=== PATIENT | female | born 1970 | race Caucasian/White ===

== ENCOUNTER 2019-02-21 19:06 | Inpatient (IN) ==
--- OUTSIDE RECORDS SUMMARY | 2019-02-21 19:09 | External Medical Summary | Continuity of Care Document ---
:1970 Author Name Lillie Daniels, Provider Address Unavailable Unavailable , Care Team Providers Name Role Phone Kennedy Hernández M.D. Unavailable [email or web address] Unavailable Unavailable Problems Active medical history not documented Allergies and Adverse Reactions Allergy history not documented Medications Medications not documented Procedures Procedures not documented Immunizations Immunizations not documented Plan of Treatment Planned Encounters Appointment; Kennedy Hernández M.D. Start: 10-Apr-2019 13:20 R equest Planned Observations Planned Goals not documented Results No Known Results Results not documented Encounters Appointment; Kennedy Hernández M.D. 10-Apr-2019 13:20 Encounter Diagnosis: Problem not documented
[2019-02-21] MEDS ORDERED: SODIUM CHLORIDE 0.9% 1000ML 1,000 ML IV ONE ×2 (19:22→20:59)
[2019-02-21] MEDS ORDERED: ONDANSETRON INJ 2 MG/ML 2 ML VIAL IV STA (19:22)
[2019-02-21 19:39] LABS: Basophils # (auto) 0.02 K/uL (0-0.2); Basophils % (auto) 0.1 %; Eosinophils # (auto) 0.02 K/uL (0-0.5); Eosinophils % (auto) 0.1 %; Hematocrit (blood only) 41.5 % (37-47); Hemoglobin 14.2 g/dL (12.0-16.0); Immature Granulocytes # (auto) 0.06 K/uL (0.00-0.02); Immature Granulocytes % (auto) 0.3 %; Lymphocytes # (auto) 1.71 K/uL (1.2-3.4); Lymphocytes % (auto) 8.6 %; Mean Corpuscular Hgb Conc 34.2 g/dL (32-36); Mean Corpuscular Volume 85.4 fL (80-100); Mean Platelet Volume 10.1 fL (7.4-10.4); Monocytes # (auto) 0.38 K/uL (0.11-0.59); Monocytes % (auto) 1.9 %; Neutrophils # (auto) 17.79 K/uL (1.4-6.5); Platelet Count 345 K/uL (130-400); RDW Coefficient of Variation 13.3 % (11.5-14.5); RDW Standard Deviation 41.1 fL (36.4-46.3); Red Blood Count 4.86 M/uL (4.2-5.4); White Blood Count 19.98 K/uL (4.8-10.8)
[2019-02-21] MEDS: fentaNYL citrate 100 MCG/2 ML VIAL IV PRN ×2 (19:42→22:11)
[2019-02-21 19:50] LABS: iSTAT Creatinine 0.9 mg/dl (0.6-1.3); iSTAT Ionized Calcium 1.17 mmol/l (1.12-1.32); iSTAT Potassium 4.5 mEq/L (3.3-5.0)
[2019-02-21 19:56] LABS: Alanine Aminotransferase 20 U/L (12-78); Albumin Level 3.5 gm/dl (3.4-5.0); Aspartate Aminotransferase 10 U/L (15-37); BUN Creatinine Ratio 13.1 (10-20); Blood Urea Nitrogen 14 mg/dl (7-18); Calcium 9.3 mg/dl (8.5-10.1); Carbon Dioxide 19 mmol/L (21-32); Chloride 107 mmol/L (98-107); Est GFR (African American) 74.4; Est GFR (Non-African American) 64.2; Glucose 169 mg/dl (70-99); Potassium 4.3 mmol/L (3.5-5.1); Sodium 137 mmol/L (136-145)
[2019-02-21 20:00] LABS: Albumin Globulin Ratio 0.7 (0.9-2); Alkaline Phosphatase 51 U/L (45-117); Bilirubin,Total 0.3 mg/dl (0.2-1); C Reactive Protein 1.37 mg/dl (0-0.29); Total Protein 8.5 gm/dl (6.4-8.2); Troponin I < 0.015 ng/ml (0-0.045)
[2019-02-21 20:06] LABS: Partial Thromboplastin Ratio 0.8; Partial Thromboplastin Time 22.4 Seconds (21.0-31.0); Prothrombin Time 10.4 Seconds (9.0-12.0)
[2019-02-21 20:16] LABS: Pregnancy Test, Serum Negative (Negative)
[2019-02-21] MEDS ORDERED: IOVERSOL 100ml IV PRN (20:22)
--- NOTE | 2019-02-21 20:32 | CT Scan Report ---
CT abd pelvis IV con only CLINICAL HISTORY: 48 years-old Female presenting with generalized abdominal pain. TECHNIQUE: Multidetector CT of the abdomen and pelvis was performed after the administration of intra venous contrast. IV contrast: 93 mL of Optiray 320. One or more dose lowering techniques were used co nsistent with the principles of ALARA (as low as reasonably achievable), including automatic exposure control, mA or kV adjustment to individual patient size, and/or use of iterative reconstruction. COMPARISON: None. CT DOSE (mGy.cm): The estimated cumulative dose is 372.47 mGy.cm. FINDINGS: Anesthesia Associate topogram: Unremarkable. Lung bases: Normal heart size. No pericardial or pleural effusion. Minimal dependent changes likely a telectasis. Liver: Normal morphology. Density suggestive of hepatic steatosis. No focal lesion. Patent hepatic va sculature. Biliary: No intrahepatic or extrahepatic biliary ductal dilatation. Normal gallbladder. Pancreas: Normal. Spleen: Normal. Adrenal glands: Normal. Kidneys and ureters: Normal. No hydronephrosis. Bladder: Incompletely evaluated secondary to underdistention. Pelvic organs: Uterus and ovaries normal. Bowel: The colon is decompressed. Mild diffuse colonic wall thickening. Few scattered colonic diverti cula. The appendix is normal. More severe small bowel wall thickening primarily affecting the distal ileum. This spares the terminal ileum. There is a striated enhancement pattern of the mucosa and sero sa significant perienteric fat infiltration. Trace hiatal hernia. Peritoneal cavity: Trace interloop fluid within the ileal loop so small bowel. Trace perihepatic asci delisa and small volume ascites in the pelvis. No free intraperitoneal gas. Lymph nodes: No enlarged lymph nodes in the abdomen or pelvis. Vasculature: Aorta and IVC patent and normal in caliber. Abdominal wall: Normal. Musculoskeletal: Normal. IMPRESSION: 1. Severe enteritis of the ileum with milder colitis. No involvement of the terminal ileum. This is most likely on an infectious or inflammatory basis. No evidence of perforation. No appendicitis. 2. Reactive ascites. 3. Suspected hepatic steatosis. Electronically signed by: Rafi Larsen M.D. 02/21/2019 8:30 PM
--- NOTE | 2019-02-21 20:47 | XRay Report ---
XR chest 1V portable CLINICAL HISTORY: 48 years-old Female presenting with abdominal pain for one day. TECHNIQUE: Portable upright AP view of the chest was obtained. COMPARISON: None. FINDINGS: Cardiomediastinal silhouette normal. Lungs and pleural spaces clear. Osseous structures normal. Upper abdomen normal. IMPRESSION: 1. No acute cardiopulmonary disease. Electronically signed by: Rafi Larsen M.D. 02/21/2019 8:46 PM
--- NOTE | 2019-02-21 23:09 | History & Physical Report ---
Date of Service February 21, 2019 Assessment & Plan (1) Enterocolitis: Enterocolitis/reactive ascites/fatty liver- Unclear etiology at this time. Studies are pending for stool culture and C. difficile, follow and treat appropriately. N.p.o., to advance to full liquids as tolerated. IV fluids. Zofran 4 mg IV every 6 hours PRN. Present on Admission?: Yes (2) Ascites: See above Present on Admission?: Yes (3) Hypotension: Lowest blood pressure recording was 78/52, which responded to standard septic fluid rehydration protocol. We will admit to medical telemetry to follow blood pressure closely. Present on Admission?: Yes (4) Hypertension: Will hold lisinopril due to hypotension Present on Admission?: Yes (5) Allergic rhinitis: Continue Singulair. Present on Admission?: Yes (6) Hyperglycemia: Glucose was 169 upon arrival. Check hemoglobin A1c. Present on Admission?: Yes History of Present Illness Chief Complaint: The patient presents to the emergency department with complaint of intermittent sharp abdominal pain, diarrhea, nausea and vomiting Primary Care Provider: Kathie Bellamy The patient is a 48-year-old female with a past medical history including hypertension and allergy, who presents emergency department with persistent abdominal discomfort, nausea, vomiting and diarrhea. She denies any recent travel or sick exposures. She also denies any questionable food intake. She has had no previous occurrence of these types of symptoms. She denies any blood in stool. Allergies Allergy/AdvReac Type Severity Reaction Status Date / Time No Known Allergies Allergy Verified 02/21/19 22:02 Home Medications Home Medications Medication Instructions Recorded Confirmed Type drospirenone-ethinyl estradiol 1 tab PO DAILY 02/21/19 02/21/19 History [LISBETH (28)] lisinopril 10 mg PO QAM 02/21/19 02/21/19 History montelukast [Singulair] 10 mg PO PM 02/21/19 02/21/19 History multivitamin 1 tab PO QAM 02/21/19 02/21/19 History omega 5-nes-eyz-fish oil [Fish Oil] 1 cap PO QAM 02/21/19 02/21/19 History Past Med/Surg History Medical History HTN (hypertension) (Chronic) Social History Preferred Language: Czech Pit 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: No Beliefs That Will Affect Care: None Current Living Situation: Spouse Other Information That Helps Us Care for You: No Feels Safe at Home: Yes Safety Concerns: Feels Safe At This Time Smoking Status: Never smoker Hx Alcohol Use: Yes Hx Substance Use: No Review of Systems Review of Systems: The patient denies chest pain, palpitations, shortness of breath, dyspnea on exertion, cough, lower extremity swelling, sore throat, fevers, chills, Blood in urine or stool, dysuria, urinary frequency or urgency, headache, memory loss, loss of consciousness, rash, abnormal bruising or bleeding, imbalance, focal or generalized weakness, numbness or tingling in arms or legs, generalized arthralgias or myalgias, back or neck pain, or night sweats. The review of systems is otherwise negative other than for that already noted above, and at least 10 systems have been reviewed. Physical Exam Physical Exam: The patient is awake, alert and oriented 3, normocephalic and atraumatic, lying in bed and in no acute distress. HEENT--PERRL, EOMI, mucous membranes and oropharynx dry. Neck--supple. No JVD. No bruits. Thyroid normal, trachea midline, no adenopathy. Heart--normal S1 and S2. No murmurs, rubs or gallops. Lungs--clear bilaterally, no respiratory distress, no accessory muscle use. Abdomen--normal bowel sounds and soft. Mild generalized tenderness, nondistended. Mildly tympanitic. Extremities--no cyanosis or clubbing. No edema. There are good distal pulses b/l. Dermatologic--normal skin turgor, normal color, no abnormal lymph nodes, no rash. Neurologic--cranial nerves II through XII grossly intact. Rheumatologic--normal range of motion. Psychiatric--normal affect. Results & Data Vital Signs (Past 12 Hours) Vital Signs Temp Pulse Pulse Resp BP BP Pulse Ox 02/21/19 23:00 74 18 112/66 98 02/21/19 22:00 76 18 124/78 98 02/21/19 21:00 77 17 112/71 98 02/21/19 19:51 72 18 113/59 L 98 02/21/19 19:15 97.7 F 78 22 78/52 L 96 Laboratory Results Laboratory Results WBC 19.98 K/uL (4.8-10.8) H 02/21/19 19: RBC 4.86 M/uL (4.2-5.4) 02/21/19 19:28 Hgb 14.2 g/dL (12.0-16.0) 02/21/19 19: POC Hgb 15.0 g/dl (12.0-16.0) 02/21/19 19:36 Hct 41.5 % (37-47) 02/21/19 19: POC Hct 44 % (37-47) 02/21/19 19:36 MCV 85.4 fL (80-100) 02/21/19: MCH 29.2 pg (25-34) 02/21/19: MCHC 34.2 g/dL (32-36) 02/21/19: RDW Std Deviation 41.1 fL (36.4-46.3) 02/21/19: RDW Coeff of Desire 13.3 % (11.5-14.5) 02/21/19: Plt Count 345 K/uL (130-400) 02/21/19: MPV 10.1 fL (7.4-10.4) 02/21/19 19:28 Immature Gran % (Auto) 0.3 % 02/21/19 19: Neut % (Auto) 89.0 % 02/21/19: Lymph % (Auto) 8.6 % 02/21/19: [place] % (Auto) 1.9 % 02/21/19 19: Eos % (Auto) 0.1 % 02/21/19: Baso % (Auto) 0.1 % 02/21/19: Immature Gran # (Auto) 0.06 K/uL (0.00-0.02) H 02/21/19 19:28 Neut # (Auto) 17.79 K/uL (1.4-6.5) H 02/21/19 19:28 Lymph # (Auto) 1.71 K/uL (1.2-3.4) 02/21/19 19:28 [place] # (Auto) 0.38 K/uL (0.11-0.59) 02/21/19 19:28 Eos # (Auto) 0.02 K/uL (0-0.5) 02/21/19 19:28 Baso # (Auto) 0.02 K/uL (0-0.2) 02/21/19 19:28 ESR 37 mm/hr (0-21) H 02/21/19 19:28 PT 10.4 Seconds (9.0-12.0) 02/21/19 19:28 INR 1.0 (0.9-1.1) 02/21/19 19: APTT 22.4 Seconds (21.0-31.0) 02/21/19: PTT Ratio 0.8 02/21/19 19:28 POC Sodium 138 mEq/L (135-144) 02/21/19 19:36 Sodium 137 mmol/L (136-145) 02/21/19 19:28 POC Potassium 4.5 mEq/L (3.3-5.0) 02/21/19 19:36 Potassium 4.3 mmol/L (3.5-5.1) 02/21/19 19:28 POC Chloride 108 mEq/L (101-112) 02/21/19 19:36 Chloride 107 mmol/L (98-107) 02/21/19 19:28 Carbon Dioxide 19 mmol/L (21-32) L 02/21/19:28 POC Total CO2 17 mEq/l (24-31) L 02/21/19 19:36 Anion Gap 11.0 (3-11) 02/21/19 19:28 POC Anion Gap 19.0 mmol/L (16-25) 02/21/19 19:36 POC BUN 14 mg/dl (7-18) 02/21/19 19:36 BUN 14 mg/dl (7-18) 02/21/19 19:28 Creatinine 1.03 mg/dl (0.6-1.2) 02/21/19 19:28 POC Creatinine 0.9 mg/dl (0.6-1.3) 02/21/19 19:36 Est Cr Clr Drug Dosing Not Reportable 02/21/19 19:28 Est GFR ( Amer) 74.4 02/21/19 19:28 Est GFR (Non-Af Amer) 64.2 02/21/19 19:28 BUN/Creatinine Ratio 13.1 (10-20) 02/21/19 19:28 Glucose 169 mg/dl (70-99) H 02/21/19 19:28 POC Glucose (other) 185 mg/dl (70-99) H 02/21/19 19:36 Calcium 9.3 mg/dl (8.5-10.1) 02/21/19: POC Ioniz Calcium Babak 1.17 mmol/l (1.12-1.32) 02/21/19 19:36 Total Bilirubin 0.3 mg/dl (0.2-1) 02/21/19:28 AST 10 U/L (15-37) L 02/21/19: ALT 20 U/L (12-78) 02/21/19: Alkaline Phosphatase 51 U/L (45-117) 02/21/19: Troponin I < 0.015 ng/ml (0-0.045) 02/21/19: C-Reactive Protein 1.37 mg/dl (0-0.29) H 02/21/19 19:28 Total Protein 8.5 gm/dl (6.4-8.2) H 02/21/19:28 Albumin 3.5 gm/dl (3.4-5.0) 02/21/19: Globulin 5.0 gm/dl (2.5-4.0) H 02/21/19:28 Albumin/Globulin Ratio 0.7 (0.9-2) L 02/21/19: Lipase 132 U/L (73-393) 02/21/19 19:28 HCG, Qual Negative (Negative) 02/21/19 19: Urine Color Yellow 02/22/19 00:01 Urine Appearance Clear (Clear) 02/22/19 00: Urine pH 6.5 (4.5-7.5) 02/22/19 00:01 Ur Specific [place] > 1.045 (1.000-1.030) H 02/22/19 00:01 Urine Protein Negative (Negative) 02/22/19 00:01 Urine Glucose (UA) Negative (Negative) 02/22/19 00:01 Urine Ketones 1+ (Negative) H 02/22/19 00:01 Urine Blood Negative (Negative) 02/22/19 00:01 Urine Nitrite Negative (Negative) 02/22/19 00:01 Urine Bilirubin Negative (Negative) 02/22/19 00:01 Urine Urobilinogen Negative (Negative) 02/22/19 00:01 Ur Leukocyte Esterase Negative (Negative) 02/22/19 00:01 Diagnostic Findings [place], [place] [phone] CT Scan Report Patient: ROB MEADE AAdmit Date: 02/21/19 MR#: [id number]: [address] Acct ID:[id number]: Date: 1970[facility] Zip: [place] [address] Age: 48Location: ED Sex: F Room/Bed: Att Phy: Diagnosis: SEVERE ABDOMINAL CRAMPS, VOMITING, DIARRHEA Ailyn Phy: Kathie Bellamy CRNPService Date: 02/21/19 Fam Phy: Interpreting Phy: Rafi Larsen MD Admit Phy: Ordering Phy: Justin Jones DO cc: ~ CT abd pelvis IV con only CLINICAL HISTORY: 48 years-old Female presenting with generalized abdominal pain. TECHNIQUE: Multidetector CT of the abdomen and pelvis was performed after the administration of intravenous contrast. IV contrast: 93 mL of Optiray 320. One or more dose lowering techniques were used consistent with the principles of ALARA (as low as reasonably achievable), including automatic exposure control, mA or kV adjustment to individual patient size, and/or use of iterative reconstruction. COMPARISON: None. CT DOSE (mGy.cm): The estimated cumulative dose is 372.47 mGy.cm. FINDINGS: River Driver topogram: Unremarkable. Lung bases: Normal heart size. No pericardial or pleural effusion. Minimal dependent changes likely atelectasis. Liver: Normal morphology. Density suggestive of hepatic steatosis. No focal lesion. Patent hepatic vasculature. Biliary: No intrahepatic or extrahepatic biliary ductal dilatation. Normal gallbladder. Pancreas: Normal. Spleen: Normal. Adrenal glands: Normal. Kidneys and ureters: Normal. No hydronephrosis. Bladder: Incompletely evaluated secondary to underdistention. Pelvic organs: Uterus and ovaries normal. Bowel: The colon is decompressed. Mild diffuse colonic wall thickening. Few scattered colonic diverticula. The appendix is normal. More severe small bowel wall thickening primarily affecting the distal ileum. This spares the terminal ileum. There is a striated enhancement pattern of the mucosa and serosa significant perienteric fat infiltration. Trace hiatal hernia. Peritoneal cavity: Trace interloop fluid within the ileal loop so small bowel. Trace perihepatic ascites and small volume ascites in the pelvis. No free intraperitoneal gas. Lymph nodes: No enlarged lymph nodes in the abdomen or pelvis. Vasculature: Aorta and IVC patent and normal in caliber. Abdominal wall: Normal. Musculoskeletal: Normal. IMPRESSION: 1. Severe enteritis of the ileum with milder colitis. No involvement of the terminal ileum. This is most likely on an infectious or inflammatory basis. No evidence of perforation. No appendicitis. 2. Reactive ascites. 3. Suspected hepatic steatosis. Electronically signed by: Rafi Larsen M.D. 02/21/2019 8:30 PM Dictated: 02/21/192024 Transcribed: 02/21/192024 [place], [place] [phone] XRay Report Patient: ROB MEADE AAdmit Date: 02/21/19 MR#: [id number]: [address] Acct ID:[id number]: Date: 1970[facility] Zip: [place] [address] Age: 48Location: ED Sex: F Room/Bed: Att Phy: Diagnosis: SEVERE ABDOMINAL CRAMPS, VOMITING, DIARRHEA Ailyn Phy: Kathie Bellamy CRNPService Date: 02/21/19 Fam Phy: Interpreting Phy: Rafi Larsen MD Admit Phy: Ordering Phy: Justin Jones DO cc: ~ XR chest 1V portable CLINICAL HISTORY: 48 years-old Female presenting with abdominal pain for one day. TECHNIQUE: Portable upright AP view of the chest was obtained. COMPARISON: None. FINDINGS: Cardiomediastinal silhouette normal. Lungs and pleural spaces clear. Osseous structures normal. Upper abdomen normal. IMPRESSION: 1. No acute cardiopulmonary disease. Electronically signed by: Rafi Larsen M.D. 02/21/2019 8:46 PM Dictated: 02/21/192044 Transcribed: 02/21/192044 Code Status & VTE Plan Code Status Full code VTE Prophylaxis Plan VTE Prophylaxis will be ordered: Yes PG Care Time/CCT Total # of Minutes Spent Total Time Spent with Patient: Total time spent is greater than 50% in coordination of care (as documented) at patient's floor/unit and/or counseling patient: (1) Hypertension Hypertension type: unspecified Qualified Code(s): I10 - Essential (primary) hypertension
[2019-02-21] MEDS ORDERED: ACETAMINOPHEN 325 MG TAB PO PRN (23:21)
[2019-02-21] MEDS ORDERED: MAGNESIUM HYDROXIDE SUSP 30 ML UDC PO PRN (23:21)
[2019-02-21] MEDS ORDERED: ALUMINUM/MAGNESIUM SUSP 30 ML UDC PO PRN (23:21)
[2019-02-21] MEDS: NSS + 20MEQ KCL 20 MEQ/1,000 ML BAG IV SCH (23:52)
[2019-02-22 00:25] LABS: Appearance Urine Clear (Clear); Bilirubin Urine Negative (Negative); Blood Urine Negative (Negative); Color Urine Yellow; Glucose Urine UA Negative (Negative); Ketones Urine 1+ (Negative); Leukocyte Esterase Urine Negative (Negative); Nitrite Urine Negative (Negative); Protein Urine Negative (Negative); Specific Gravity Urine > 1.045 (1.000-1.030); Urobilinogen Urine Negative (Negative); pH Urine 6.5 (4.5-7.5)
--- NOTE | 2019-02-22 00:33 | Emergency Department Note ---
Entered by Janette Daugherty acting as a scribe for Justin Jones DO History of Present Illness General Chief complaint: Abdominal Pain Stated complaint: SEVERE ABDOMINAL CRAMPS, VOMITING, DIARRHEA Source: patient and family () History of Present Illness Provider complaint: abdominal pain Onset (ago): day(s) (several days ago) Location: abdomen Pain Consistency: + intermittent Maximum Pain Intensity: 8 Quality: + sharp Associated symptoms: + nausea/vomiting and + other (+diarrhea, -blood in stools or vomit) The patient is a 48 year old female who presents to the Emergency Room with complaints of intermittent sharp abdominal pain. The patients states the patient has been having constant abdominal pain, diarrhea, nausea, and vomiting. He states that the patient has been having vomiting episodes every 25 minutes. The patient states that she takes medication for hypertension. She d enies any blood in her stools. She denies any past liver issues. Home Medications Home Medications Medication Instructions Recorded Confirmed Type drospirenone-ethinyl estradiol 1 tab PO DAILY 02/21/19 02/21/19 History [LISBETH (28)] lisinopril 10 mg PO QAM 02/21/19 02/21/19 History montelukast [Singulair] 10 mg PO PM 02/21/19 02/21/19 History multivitamin 1 tab PO QAM 02/21/19 02/21/19 History omega 1-okq-rcd-fish oil [Fish Oil] 1 cap PO QAM 02/21/19 02/21/19 History Allergies Allergy/AdvReac Type Severity Reaction Status Date / Time No Known Allergies Allergy Verified 02/21/19 22:02 Past Med/Surg History Medical History HTN (hypertension) (Chronic) Social History Preferred Language: Portuguese Completion Manager Required: No Beliefs That Will Affect Care: None Current Living Situation: Spouse Other Information That Helps Us Care for You: No Feels Safe at Home: Yes Safety Concerns: Feels Safe At This Time Smoking Status: Never smoker Hx Alcohol Use: Yes Hx Substance Use: No Review of Systems See HPI for pertinent positives & negatives. and A total of 10 systems reviewed and were otherwise negative Physical Exam Vital Signs Vital Signs - 24 hr 02/21/19 19:15 02/21/19 19:51 02/21/19 21:00 Temperature 36.5 C Temperature Source Oral Sepsis Recent Fever Within 48 Hours No Sepsis Action Taken by Nursing No Action Required Pulse Rate 78 Pulse Rate [Right Finger] 72 77 Respiratory Rate 22 18 17 Blood Pressure 78/52 L Blood Pressure [Right Arm] 113/59 L 112/71 Blood Pressure Mean 60 Blood Pressure Mean [Right Arm] 77 84 Pulse Oximetry 96 98 98 Oxygen Delivery Method Room Air 02/21/19 22:00 Temperature Temperature Source Sepsis Recent Fever Within 48 Hours Sepsis Action Taken by Nursing Pulse Rate Pulse Rate [Right Finger] 76 Respiratory Rate 18 Blood Pressure Blood Pressure [Right Arm] 124/78 Blood Pressure Mean Blood Pressure Mean [Right Arm] 93 Pulse Oximetry 98 Oxygen Delivery Method GENERAL: Patient is awake, alert, uncomfortable and anxious appearing. Patient is resting comfortably and showing no signs of anxiety EYES: The conjunctivae are clear. The pupils are round and reactive. EARS, NOSE, MOUTH AND THROAT: The nose is without any evidence of any deformity. Mucous membranes are moist.Tongue is midline NECK: The neck is nontender and supple. RESPIRATORY: Normal respiratory effort is noted. There is no evidence of wheezing rhonchi or rales to auscultation. CARDIOVASCULAR: Regular rate and rhythm noted. There no murmurs rubs or gallops normal S1 normal S2 GASTROINTESTINAL: The abdomen is soft and diffusely tender. Bowel sounds are present in all quadrants. Guarding in RUQ. MUSCULOSKELETAL/EXTREMITIES: There is no evidence of gross deformity. Full range of motion is noted in the hips and shoulders. No pedal edema noted. Pulses symmetrical in both feet. SKIN: Ashened and diaphoretic. There is no obvious evidence of any rash. There are no petechiae, pallor or cyanosis noted. NEUROLOGIC: Patient is awake alert and oriented x3. Strength is symmetric. Patellar reflexes are 2+ bilaterally. Course 1917: The patient was evaluated in room B6, and a complete history and physical examination were performed. 2057: I reevaluated and updated the patient on her results, the patient is resting comfortably. 2109: I reviewed the patient's [facility] He will evaluate the patient for further management. Consultations Consultation #1: Dr. Dhillon [facility] Hospitalist Time: 21:10 Administered Medications Potassium Chloride/Sodium Chloride (Normal Saline W/20 Meq Kcl) 20 meq in 1,000 mls @ 150 mls/hr IV .Q6H40M JAMSHID Stop: 03/23/19 23:20 Last Admin: 02/21/19 23:52 Dose: 150 mls/hr Documented by: [id number] Ioversol (Optiray 320 100ml) 93 ml IV ONCE PRN PRN Reason: Interaction Checking Stop: 02/25/19 20:21 Last Admin: 02/21/19 20:23 Dose: 93 ml Documented by: [id number] Miscellaneous (Order Awaiting Action) 1 ea N/A QS JAMSHID Stop: 03/24/19 00:00 Last Admin: 02/21/19 23:53 Dose: Not Given Documented by: [id number] Discontinued Medications Fentanyl Citrate (Fentanyl Citrate) 50 mcg IV Q15M PRN PRN Reason: Pain Stop: 03/07/19 19:21 Last Admin: 02/21/19 22:11 Dose: 50 mcg Documented by: [id number] Admin: 02/21/19 19:42 Dose: 50 mcg Documented by: [id number] Sodium Chloride (Nss 1000ml) 1,000 mls @ 999 mls/hr IV .Q1H1M ONE Stop: 02/21/19 20:22 Last Infusion: 02/21/19 20:34 Dose: 0 mls/hr Documented by: [id number] Admin: 02/21/19 19:33 Dose: 999 mls/hr Documented by: [id number] Sodium Chloride (Nss 1000ml) 1,000 mls @ 999 mls/hr IV .Q1H1M ONE Stop: 02/21/19 21:59 Last Infusion: 02/21/19 23:02 Dose: 0 mls/hr Documented by: [id number] Admin: 02/21/19 21:12 Dose: 999 mls/hr Documented by: [id number] Ondansetron HCl (Zofran) 4 mg IV NOW STA Stop: 02/21/19 19:23 Last Admin: 02/21/19 19:42 Dose: 4 mg Documented by: [id number] Medical Decision Making Differential Diagnosis Differential diagnosis: Etiologies such as appendicitis, diverticulitis, PUD, biliary pathology, UTI, pancreatitis, obstruction, mesenteric ischemia, aortic pathology, infections, inflammatory bowel disease, renal colic, as well as others were entertained. Medical Records Attestation: I reviewed the patient's medical records. Home Medications Current Medication List: was personally reviewed by me Laboratory Data Attestation: I reviewed the patient's lab results. Result diagrams: 02/21/19 19:28 02/21/19 19:28 Lab Results 02/21/19 02/21/19 02/21/19 Range/Units 19:28 19:28 19:28 WBC 19.98 H (4.8-10.8) K/uL RBC 4.86 (4.2-5.4) M/uL Hgb 14.2 (12.0-16.0) g/dL POC Hgb (12.0-16.0) g/dl Hct 41.5 (37-47) % POC Hct (37-47) % MCV 85.4 (80-100) fL MCH 29.2 (25-34) pg MCHC 34.2 (32-36) g/dL RDW Std Deviation 41.1 (36.4-46.3) fL RDW Coeff of Desire 13.3 (11.5-14.5) % Plt Count 345 (130-400) K/uL MPV 10.1 (7.4-10.4) fL Immature Gran % (Auto) 0.3 % Neut % (Auto) 89.0 % Lymph % (Auto) 8.6 % Pickett % (Auto) 1.9 % Eos % (Auto) 0.1 % Baso % (Auto) 0.1 % Immature Gran # (Auto) 0.06 H (0.00-0.02) K/uL Neut # (Auto) 17.79 H (1.4-6.5) K/uL Lymph # (Auto) 1.71 (1.2-3.4) K/uL Pickett # (Auto) 0.38 (0.11-0.59) K/uL Eos # (Auto) 0.02 (0-0.5) K/uL Baso # (Auto) 0.02 (0-0.2) K/uL ESR 37 H (0-21) mm/hr PT 10.4 (9.0-12.0) Seconds INR 1.0 (0.9-1.1) APTT 22.4 (21.0-31.0) Seconds PTT Ratio 0.8 POC Sodium (135-144) mEq/L Sodium (136-145) mmol/L POC Potassium (3.3-5.0) mEq/L Potassium (3.5-5.1) mmol/L POC Chloride (101-112) mEq/L Chloride (98-107) mmol/L Carbon Dioxide (21-32) mmol/L POC Total CO2 (24-31) mEq/l Anion Gap (3-11) POC Anion Gap (16-25) mmol/L POC BUN (7-18) mg/dl BUN (7-18) mg/dl Creatinine (0.6-1.2) mg/dl POC Creatinine (0.6-1.3) mg/dl Est Cr Clr Drug Dosing Est GFR ( Amer) Est GFR (Non-Af Amer) BUN/Creatinine Ratio (10-20) Glucose (70-99) mg/dl POC Glucose (other) (70-99) mg/dl Calcium (8.5-10.1) mg/dl POC Ioniz Calcium Babak (1.12-1.32) mmol/l Total Bilirubin (0.2-1) mg/dl AST (15-37) U/L ALT (12-78) U/L Alkaline Phosphatase (45-117) U/L Troponin I (0-0.045) ng/ml C-Reactive Protein (0-0.29) mg/dl Total Protein (6.4-8.2) gm/dl Albumin (3.4-5.0) gm/dl Globulin (2.5-4.0) gm/dl Albumin/Globulin Ratio (0.9-2) Lipase (73-393) U/L HCG, Qual (Negative) 02/21/19 02/21/19 02/21/19 Range/Units 19:28 19:28 19:36 WBC (4.8-10.8) K/uL RBC (4.2-5.4) M/uL Hgb (12.0-16.0) g/dL POC Hgb 15.0 (12.0-16.0) g/dl Hct (37-47) % POC Hct 44 (37-47) % MCV (80-100) fL MCH (25-34) pg MCHC (32-36) g/dL RDW Std Deviation (36.4-46.3) fL RDW Coeff of Desire (11.5-14.5) % Plt Count (130-400) K/uL MPV (7.4-10.4) fL Immature Gran % (Auto) % Neut % (Auto) % Lymph % (Auto) % Pickett % (Auto) % Eos % (Auto) % Baso % (Auto) % Immature Gran # (Auto) (0.00-0.02) K/uL Neut # (Auto) (1.4-6.5) K/uL Lymph # (Auto) (1.2-3.4) K/uL Pickett # (Auto) (0.11-0.59) K/uL Eos # (Auto) (0-0.5) K/uL Baso # (Auto) (0-0.2) K/uL ESR (0-21) mm/hr PT (9.0-12.0) Seconds INR (0.9-1.1) APTT (21.0-31.0) Seconds PTT Ratio POC Sodium 138 (135-144) mEq/L Sodium 137 (136-145) mmol/L POC Potassium 4.5 (3.3-5.0) mEq/L Potassium 4.3 (3.5-5.1) mmol/L POC Chloride 108 (101-112) mEq/L Chloride 107 (98-107) mmol/L Carbon Dioxide 19 L (21-32) mmol/L POC Total CO2 17 L (24-31) mEq/l Anion Gap 11.0 (3-11) POC Anion Gap 19.0 (16-25) mmol/L POC BUN 14 (7-18) mg/dl BUN 14 (7-18) mg/dl Creatinine 1.03 (0.6-1.2) mg/dl POC Creatinine 0.9 (0.6-1.3) mg/dl Est Cr Clr Drug Dosing Not Reportable Est GFR ( Amer) 74.4 Est GFR (Non-Af Amer) 64.2 BUN/Creatinine Ratio 13.1 (10-20) Glucose 169 H (70-99) mg/dl POC Glucose (other) 185 H (70-99) mg/dl Calcium 9.3 (8.5-10.1) mg/dl POC Ioniz Calcium Babak 1.17 (1.12-1.32) mmol/l Total Bilirubin 0.3 (0.2-1) mg/dl AST 10 L (15-37) U/L ALT 20 (12-78) U/L Alkaline Phosphatase 51 (45-117) U/L Troponin I < 0.015 (0-0.045) ng/ml C-Reactive Protein 1.37 H (0-0.29) mg/dl Total Protein 8.5 H (6.4-8.2) gm/dl Albumin 3.5 (3.4-5.0) gm/dl Globulin 5.0 H (2.5-4.0) gm/dl Albumin/Globulin Ratio 0.7 L (0.9-2) Lipase 132 (73-393) U/L HCG, Qual Negative (Negative) Imaging Data Radiologist's Impression: Radiology results as stated below per my review and the radiologist's interpretation: XR chest 1V portable CLINICAL HISTORY: 48 years-old Female presenting with abdominal pain for one day. TECHNIQUE: Portable upright AP view of the chest was obtained. COMPARISON: None. FINDINGS: Cardiomediastinal silhouette normal. Lungs and pleural spaces clear. Osseous structures normal. Upper abdomen normal. IMPRESSION: 1. No acute cardiopulmonary disease. Electronically signed by: Rafi Larsen M.D. 02/21/2019 8:[address] abd pelvis IV con only CLINICAL HISTORY: 48 years-old Female presenting with generalized abdominal pain. TECHNIQUE: Multidetector CT of the abdomen and pelvis was performed after the administration of intravenous contrast. IV contrast: 93 mL of Optiray 320. One or more dose lowering techniques were used consistent with the principles of ALARA (as low as reasonably achievable), including automatic exposure control, mA or kV adjustment to individual patient size, and/or use of iterative reconstruction. COMPARISON: None. CT DOSE (mGy.cm): The estimated cumulative dose is 372.47 mGy.cm. 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 Lung bases: Normal heart size. No pericardial or pleural effusion. Minimal dependent changes likely atelectasis. Liver: Normal morphology. Density suggestive of hepatic steatosis. No focal lesion. Patent hepatic vasculature. Biliary: No intrahepatic or extrahepatic biliary ductal dilatation. Normal gallbladder. Pancreas: Normal. Spleen: Normal. Adrenal glands: Normal. Kidneys and ureters: Normal. No hydronephrosis. Bladder: Incompletely evaluated secondary to underdistention. Pelvic organs: Uterus and ovaries normal. Bowel: The colon is decompressed. Mild diffuse colonic wall thickening. Few scattered colonic diverticula. The appendix is normal. More severe small bowel wall thickening primarily affecting the distal ileum. This spares the terminal ileum. There is a striated enhancement pattern of the mucosa and serosa significant perienteric fat infiltration. Trace hiatal hernia. Peritoneal cavity: Trace interloop fluid within the ileal loop so small bowel. Trace perihepatic ascites and small volume ascites in the pelvis. No free intraperitoneal gas. Lymph nodes: No enlarged lymph nodes in the abdomen or pelvis. Vasculature: Aorta and IVC patent and normal in caliber. Abdominal wall: Normal. Musculoskeletal: Normal. IMPRESSION: 1. Severe enteritis of the ileum with milder colitis. No involvement of the terminal ileum. This is most likely on an infectious or inflammatory basis. No evidence of perforation. No appendicitis. 2. Reactive ascites. 3. Suspected hepatic steatosis. Electronically signed by: Rafi Larsen M.D. 02/21/2019 8:30 PM ECG Data Attestation: I personally reviewed and interpreted this ECG as follows: Indication: abdominal pain Rate (beats per minute): 74 Rhythm: normal sinus Findings: + other (no acute ST segments); no ectopy Comparison ECG Date: no prior available Blood Pressure Blood Pressure Findings: Normal blood pressure Blood Pressure Disposition: did not require urgent referral MDM Narrative The patient is a 48-year-old female who presented to the emergency department with her significant other for an evaluation in and diarrhea. The patient had significant abdominal tenderness and hypotension initially. She was treated with IV fluids and her blood pressure responded well. I discussed the patient's laboratory and radiographic studies with her and her significant other. She was found to have significant colitis on CT. This appeared to be at the ileum but not the terminal ileum. Stool studies were ordered but the patient was not able to produce a specimen while she was in the emergency department. I discussed her case with the on-call [facility] hospitalist group. They have agreed to evaluate the patient in the emergency department for further management and disposition. Impression & Plan Abdominal pain, Diarrhea, Enteritis, Hypertension Discharge Plan Visit Data *Final* Discharge Date/Time: 02/21/19 23:07 Chief Complaint: Abdominal Pain Stated Complaint: SEVERE ABDOMINAL CRAMPS, VOMITING, DIARRHEA ED Provider: Justin Jones Discharge Problem: Abdominal pain, Diarrhea, Enteritis, Hypertension Patient Disposition: Admitted As Inpatient Discharge Instructions Interventions: ED Discharge Assessment Last Done: 02/21/19 23:07 Discharge Problem: Abdominal pain Qualifiers: Abdominal location: unspecified location Qualified Code(s): R10.9 - Unspecified abdominal pain Diarrhea Qualifiers: Diarrhea type: unspecified type Qualified Code(s): R19.7 - Diarrhea, unspecified Hypertension Qualifiers: Hypertension type: unspecified Qualified Code(s): I10 - Essential (primary) hypertension The scribe's documentation has been prepared under my direction and personally reviewed by me in its entirety. I confirm that the note above accurately reflects all work, treatment, procedures, and medical decision making performed by me.
[2019-02-22] MEDS: NSS + 20MEQ KCL 20 MEQ/1,000 ML BAG IV SCH (05:50)
[2019-02-22 06:03] LABS: Basophils # (auto) 0.02 K/uL (0-0.2); Basophils % (auto) 0.2 %; Eosinophils # (auto) 0.09 K/uL (0-0.5); Eosinophils % (auto) 0.9 %; Hematocrit (blood only) 33.7 % (37-47); Hemoglobin 11.2 g/dL (12.0-16.0); Immature Granulocytes # (auto) 0.01 K/uL (0.00-0.02); Immature Granulocytes % (auto) 0.1 %; Lymphocytes # (auto) 2.23 K/uL (1.2-3.4); Lymphocytes % (auto) 21.8 %; Mean Corpuscular Hgb Conc 33.2 g/dL (32-36); Mean Corpuscular Volume 87.8 fL (80-100); Mean Platelet Volume 9.6 fL (7.4-10.4); Monocytes # (auto) 0.54 K/uL (0.11-0.59); Monocytes % (auto) 5.3 %; Neutrophils # (auto) 7.36 K/uL (1.4-6.5); Neutrophils % (auto) 71.7 %; Platelet Count 264 K/uL (130-400); RDW Coefficient of Variation 13.4 % (11.5-14.5); RDW Standard Deviation 43.1 fL (36.4-46.3); Red Blood Count 3.84 M/uL (4.2-5.4); White Blood Count 10.25 K/uL (4.8-10.8)
[2019-02-22 06:28] LABS: BUN Creatinine Ratio 13.7 (10-20); Calcium 8.2 mg/dl (8.5-10.1); Creatinine Clr Calc Pharmacy 91.5 ml/min; Est GFR (African American) 114.8; Magnesium 2.3 mg/dl (1.8-2.4); Potassium 4.2 mmol/L (3.5-5.1)
[2019-02-22 07:40] LABS: Estimated Average Glucose 123 mg/dl; Hemoglobin A1C 5.9 % (4.5-5.6)
--- NOTE | 2019-02-22 08:58 | Discharge Summary ---
Date of Service February 22, 2019 Admission HPI Per Admitting Provider The patient is a 48-year-old female with a past medical history including hypertension and allergy, who presents emergency department with persistent abdominal discomfort, nausea, vomiting and diarrhea. She denies any recent travel or sick exposures. She also denies any questionable food intake. She has had no previous occurrence of these types of symptoms. She denies any blood in stool. Admission Exam Per Admitting Provider The patient is awake, alert and oriented 3, normocephalic and atraumatic, lying in bed and in no acute distress. HEENT--PERRL, EOMI, mucous membranes and oropharynx dry. Neck--supple. No JVD. No bruits. Thyroid normal, trachea midline, no adenopathy. Heart--normal S1 and S2. No murmurs, rubs or gallops. Lungs--clear bilaterally, no respiratory distress, no accessory muscle use. Abdomen--normal bowel sounds and soft. Mild generalized tenderness, nondistended. Mildly tympanitic. Extremities--no cyanosis or clubbing. No edema. There are good distal pulses b/l. Dermatologic--normal skin turgor, normal color, no abnormal lymph nodes, no rash. Neurologic--cranial nerves II through XII grossly intact. Rheumatologic--normal range of motion. Psychiatric--normal affect. Principal Diagnosis Enteritis Discharge Exam Constitutional well developed, well nourished, cooperative and comfortable Respiratory normal respiratory effort, lungs clear to auscultation Cardiovascular RRR, no murmur, no edema Gastrointestinal (Abdomen) normal bowel sounds, soft, nontender, no hepatosplenomegaly Skin no rashes, warm and dry Psychiatric A+Ox3, euthymic affect Discharge Data Allergies Allergy/AdvReac Type Severity Reaction Status Date / Time No Known Allergies Allergy Verified 02/21/19 22:02 Consultations 02/21/19 21:14 ED Decision to Admit Stat 02/21/19 23:21 Consult Case Management - Discharge Planning Routine Ordered Studies 02/21/19 19:22 CT abd pelvis IV con only Stat Hospital Course (1) Enterocolitis: Ms. Lucas is a 48 year old female with a past medical history of hypertension and allergies who presented to [facility] with a 3-day history of abdominal pain, vomiting, diarrhea. Enterocolitis -CT abdomen and pelvis -severe enteritis of ileum, with mild colitis. Associated with reactive ascites. Hepatic steatosis also noted -no recent travel, no new foods, no sick contacts, no contact w/children, no personal or family hx of GI problems. No prior colonoscopy. -pt treated with IVF and prn zofran -symptoms resolved on 02/22 -Studies ordered for stool culture and C. difficile, however pt's diarrhea resolved before these were collected -pt tolerating regular diet on day of discharge, and asymptomatic -suspicious for infectious cause, however given location of inflammation in the ileus, recommend routine f/u with GI. Pt may benefit from colonoscopy to ensure no other cause for inflammation in ileus, ie. IBD. Hypotension: - BP low on arrival to [facility] - lowest blood pressure recording was 78/52, which responded to standard septic fluid rehydration protocol - BP improved prior to d/c, pt maintained adequate PO intake, no orthostatic symptoms Hypertension: - HCTZ d/sarah in last couple of weeks secondary to hypotension in office - pt had also noted orthostatic symptoms over past couple of weeks - Will d/c lisinopril due to hypotension - can restart in outpatient setting if necessary, but suspect pt will not need this restarted - encouraged pt to take BP measurements at home Hyperglycemia: - Glucose was 169 upon arrival. - HgbA1c = 5.9% - at risk of diabetes. Outpatient f/u Allergic rhinitis: - Continue Singulair. (2) Allergic rhinitis: (3) Hypotension: (4) Ascites: (5) Abdominal pain: (6) Diarrhea: (7) Hypertension: Total Time Total Time Spent Total Time Spent (In Minutes): 30 Discharge Plan Discharge Items Patient Disposition: Home - Self-Care Reason For Visit: ENTEROCOLITIS,REACTIVE ASCITES,HYPOTENSION Discharge Diagnosis: Inflammation of colon Discharge Goals: Decrease discomfort and Improve function Activity: Resume your previous activity Non-emergency contact: Primary Care Provider Call non-emergency contact if: you have any medication questions, your symptoms worsen and your temperature is above 100.5 Follow-up/Referrals: Kailee Krishna PA-C [Physician Animal Attendant] - 02/27/19 10:50 am (Please, follow up at [facility] Gastroenterology Office with Kailee Krishna Pa-C on TuesdayFebruary 27 at 11:10 am (arrive 10:50 am). *This office is located at [address] in [facility]). If you need to change/cancel this appointment, call the office at [phone].) Kathie Bellamy CRNP [Primary Care Provider] - Diet: Regular Addtl Provider Instructions: Ms. Lucas, you were admitted to [facility] [address] due to abdominal pain, vomiting, and diarrhea. Your blood pressure was found to be low, and we treated you with IV fluids. The CT scan of your abdomen showed inflammation in the last part of your small intestines, as well as throughout your large intestines. Your lab work was unremarkable. Your symptoms resolved, and the likely cause of them was an infection. Given the location of the inflammation in your bowels, we do recommend that you follow up with a GI doctor, who may perform your screening colonoscopy slightly earlier than recommended, just to rule out any other causes of inflammation in your bowel. We have made you an appointment to see the GI doctor and it is listed above. We recommend eating a bland diet for the next couple of days, and avoiding spicy foods and caffeine. Since your blood pressure is on the lower side, we recommend stopping your lisinopril. Please take your blood pressure at home so that we can have accurate readings of what your normal range is. If the top number is consistently above 160, please see your primary care provider sooner than your 6 week follow up. If not, you can keep your original appointment and they can make the decision as to whether or not you need to be placed back on that medication. If you have recurrent symptoms, fever, chills, or unable to keep anything down, please seek medical attention. Otherwise, please continue to take your other medications as prescribed Prescriptions: Continued montelukast [Singulair] 10 mg Tablet 10 mg PO PM RF: 0 multivitamin Tablet,Chewable 1 tab PO QAM RF: 0 drospirenone-ethinyl estradiol [LISBETH (28)] 3-0.02 mg Tablet 1 tab PO DAILY RF: 0 omega 1-gtv-mca-fish oil [Fish Oil] 1,000 mg (120 mg-180 mg) Capsule 1 cap PO QAM RF: 0 Discontinued lisinopril 10 mg Tablet 10 mg PO QAM RF: 0 Stand-Alone Forms: Call Back Authorization, [facility] Discharge Orders: Discharge Order (Routine); Ordered 02/22/19 Ordered By: Angelina Isidro Admission Data Admit Date/Time: 02/21/19 22:28 Attending Provider: Blair Nuñez Admit Provider: Lorenzo Patel Primary Care Provider: Kathie Bellamy Other Providers: Lorenzo Patel Service: Telemetry Medical Other Interventions: Discharge Summary Assessment (RN) Last Done: 02/22/19 12:03 DC Date/Time DO NOT enter until pt leaves facility: 02/22/19 13:42 Supervising Physician Co-Signing Physician Notes I personally examined the patient and verified all points of history and exam, discussed case, and agree with decision making with Dr Isidro. Feeling better. No nausea no vomiting no diarrhea. Eating okay. Abdominal pain settling. Would like to go home. Vitals noted, in general she is awake and alert pleasant no distress. HEENT normal cephalic atraumatic mucous members moist. Breathing unlabored no accessory muscle use good effort. Skin shows no rashes no pallor or icterus. Enteritisimproved with supportive care, most likely infectious in a nonspecific way. Appears to have resolved. Stable for home. Given the ileitis appearance of it, and given that she is due for a screening colonoscopy in no more than about a year and a half anyway, will refer to gastroenterology for evaluation and possibly a scope slightly earlier than she would be warranted for screening. Otherwise as above. Resident Activity Tracking Resident Involvement: Resident Care Provided Care Provided: Adult Hospital Medicine
[2019-02-22] MEDS ORDERED: MONTELUKAST SODIUM 10 MG TABLET PO SCH (21:00)
== END 2019-02-22 13:42 | disposition home or self-care (01) | DRG 392 ==
LOC: ED 19:06 → SUATTDRO 22:28 → 2N 22:28